=== PATIENT | female | born 1955 | race Hispanic/Latino ===

== ENCOUNTER → 2017-11-14 | Outpatient (CLI) | payer MEDICARE, BC ==
--- NOTE | 2017-11-15 19:09 | Diagnostic Imaging Report ---
Bone Scan, three-phase Reason for exam: Left knee arthroplasty in 2013. Left knee pain that radiates from the knee to the hip, getting progressively worse since 2015.. Radiopharmaceutical: Tc-99m MDP 27.4 mCi Comparison: 3-phase bone scan 07/05/2015 Following intravenous administration of the radiopharmaceutical, dynamic flow and immediate blood pool images of the knees and distal thighs followed by delayed spot images were obtained. Flow and blood pool images show symmetric distribution of tracer activity to the bilateral knees and thighs without focal abnormalities, specifically, none in the left knee. The left knee prosthesis is noted. The distribution of tracer activity at the left knee is unchanged compared to the prior bone scan of 07/05/2015 although is slightly less intense. Tracer is seen along the tibial plateau and at the distal medial femoral condyle. Tracer is unremarkable throughout the thighs and hips without evidence of hyperemia. Trochanteric bursitis is noted on the left. Impression: No scan evidence of loosening of the prosthesis or of infection. No soft tissue inflammatory process is seen in the adjacent soft tissues. No focal abnormalities are seen in the hips or thighs. Signed by: Dr. Rea Evans M.D. on 11/15/2017 7:05 PM
== END ==
LOC: NM 08:19
PROVIDERS: ATTEND Orthopaedic Surgery
DX: M25.552 Pain in left hip (principal)
CPT/HCPCS: 78315; A9503

== ENCOUNTER → 2018-08-21 | Outpatient (CLI) | payer MEDICARE, BC ==
--- NOTE | 2018-08-27 08:41 | Diagnostic Imaging Report ---
PROCEDURE: BONE DXA DUAL ENERGY COMPARISON:04/21/2012 INDICATIONS:POST MENOPAUSAL FINDINGS:Evaluation of the left hip and lumbar spine was performed utilizing DEXA Hologic bone densitometer. The study is technically adequate. The patient does not have any known previous non-traumatic fractures or other risk factors. Left hip total bone mineral density: 0.931 gm/cm2, T-score is -0.2, Z-score is 0.8. Lumbar spine total bone mineral density: 1.082 gm/cm2, T-score is 0.3, Z-score is 2.0. Impression: 1. Normal bone mineral density of the left hip, fracture risk is not increased. 2. Normal bone mineral density of the lumbar spine, fracture risk is not increased. 3. Femur bone mineral density change since previous study (04/21/2012) -3.5% 4. Spine bone mineral density change since previous study (04/21/2012) +4.5% 5. The 10 year fracture risk not reported as all T-scores are above -1.0 The patient's fracture risk is compared to an age-matched control. Medical evaluation for secondary causes of low bone mineral density may be appropriate. Correlate clinically for the necessity and timing of the next bone mineral density study. National [employer] recommendations: Initial therapy to reduce fracture risk in postmenopausal women with -BMD t-scores below -2.0 by central DXA with no risk factors -BMD t-scores below -1.5 by central CXA with one or more risk factors (first deg relative with hip fracture, prior personalfracture, low body weight, smoking) -A prior vertebral or hip fracture AACE n(Clinical Endocrinology) recommends treating the following: Postmenopausal women who have osteoporosis as diagnosed by fragility fractures or t-score -2.5 or below. Postmenopausal women who have risk factors (including hx of hip fracture, low body weight, smoking, risk of falling, high bone turnover, advancing age) and borderline low BMD T-scores of -1.5 or below Adequate intake of calcium (at least 1200mg/day) and vitamin D (400-800IU/day). Regular weight bearing and muscle-strengthening exercises Avoid smoking and excessive alcohol Charbel Bill D.O. Dictated by: Charbel Bill D.O. on 08/27/2018 at 8:50 Electronically approved by: Charbel Bill D.O. on 08/27/2018 at 8:50
--- NOTE | 2018-08-28 08:20 | Diagnostic Imaging Report ---
#[id number] - MGSCRBIL #BILATERAL DIGITAL SCREENING MAMMOGRAM WITH CAD: 08/21/2018 CLINICAL: Routine screening. Comparison is made to exams dated: 08/30/2017 mammogram and 04/21/2012 mammogram - [facility]. Current study contains 4 films. There are scattered fibroglandular elements in both breasts. Current study was also evaluated with a Computer Aided Detection (CAD) system. There are benign calcifications in both breasts. No significant masses, calcifications, or other findings are seen in either breast. There has been no significant interval change. IMPRESSION: BENIGN There is no mammographic evidence of malignancy. A 1 year screening mammogram is recommended. The patient will be notified by letter of the results. Charbel herrera/osmani:08/27/2018 11:55:46 Timber Skidder: Rea LLANES(R)(M), [facility] letter sent: Compared to Prior B9 Mammogram BI-RADS: 2 Benign
== END ==
LOC: MAMMO 08:58
PROVIDERS: ATTEND Family Medicine
DX: Z12.31 Encounter for screening mammogram for malignant neoplasm of breast (principal); Z78.0 Asymptomatic menopausal state
CPT/HCPCS: 77067; 77080

== ENCOUNTER → 2019-06-17 | Outpatient (CLI) | payer MEDICARE ==
--- NOTE | 2019-06-22 09:10 | Diagnostic Imaging Report ---
#[id number] - MGSCRBIL #BILATERAL DIGITAL SCREENING MAMMOGRAM WITH CAD: 06/17/2019 CLINICAL: Routine screening. Comparison is made to exams dated: 08/21/2018 mammogram and 08/30/2017 mammogram - [facility]. Current study contains 4 films. There are scattered fibroglandular elements in both breasts. Current study was also evaluated with a Computer Aided Detection (CAD) system. Benign appearing calcifications are noted bilaterally. No significant masses, calcifications, or other findings are seen in either breast. IMPRESSION: BENIGN There is no mammographic evidence of malignancy. A 1 year screening mammogram is recommended. The patient will be notified by letter of the results. MARILOU SCHNEIDER M.D. ct/penrad:06/19/2019 09:29:26 Youth Worker: Rea LLANES(Will)([place]), [facility] letter sent: Normal Exam Mammogram BI-RADS: 2 Benign
== END ==
LOC: MAMMO 09:04
PROVIDERS: ATTEND Family Medicine
DX: Z12.31 Encounter for screening mammogram for malignant neoplasm of breast (principal)
CPT/HCPCS: 77067

== ENCOUNTER → 2019-09-08 | Outpatient (CLI) | payer MEDICARE ==
--- NOTE | 2019-09-09 02:52 | Diagnostic Imaging Report ---
History: Low back pain, spondylolisthesis Comparison studies: None Technique: Sagittal and axial T2 , sagittal T1 and IR, axial spin density oblique. Intravenous contrast: None Findings: Number of lumbar vertebral bodies: 5. Alignment: Straining the usual lumbar lordotic curvature with mild levo lumbar curvature. Grade 1 (5 mm) degenerative anterolisthesis of L5 on S1. Soft tissues: No T2 hyperintense inflammatory changes. Paraspinal muscles: Moderate symmetric fatty-replaced atrophic changes of the dorsal paraspinal musculature. Lower thoracic cord: Normal in signal and morphology. The tip of the conus is at L1 . Cauda equina: No masses. No arachnoiditis. Vertebrae: No compression fractures, infection or neoplasm. Degenerative changes: A few scattered shallow endplate Schmorl's nodes are present. L1-L2: Mildly degenerated disc. Small central-left central disc extrusion which has migrated toward the midline 5 mm inferior to the level of the superior L2 endplate does not result in canal stenosis or nerve root impingement. Patent foramina. L2-L3: Mildly degenerated the. Disc bulge with annular fissure and superimposed small left central disc extrusion which has migrated 6 mm superiorly from the level of the inferior L2 endplate towards the midline does not result significant canal stenosis or nerve root impingement. Patent foramen. L3-L4: Mildly degenerated disc asymmetric left disc osteophyte complex with superimposed post small left subarticular disc protrusion and facet arthrosis with minimal canal stenosis, narrowing of the bilateral subarticular recesses and mild left foraminal stenosis. Small disc protrusion abut the left L4 nerve root. L4-L5: Moderately degenerated disc asymmetrically on the right along the concavity lumbar curvature where there are degenerative endplate changes and mild edema along the inferior L4 endplate. Asymmetric right disc osteophyte complex, thickened ligamentum flavum and mild facet arthrosis with mild right foraminal stenosis. No significant canal or left foraminal stenosis per L5-S1: Mildly degenerated disc. Grade 1 degenerative anterolisthesis of L5 on S1 with associated uncovered disc/disc bulge and severe bilateral facet arthrosis with mild canal stenosis, moderate right foraminal stenosis and narrowing of the bilateral subarticular recesses. IMPRESSION: 1. Degenerative changes with multilevel disc degeneration, annular fissure at L2-L3, small disc herniations at L2-L3, L3-L4 and at L4-L5, mild multilevel canal stenosis and multilevel facet arthrosis as described. 2. Mild canal stenosis at L3-L4 and at L5-S1. 3. Grade 1 degenerative L5 anterolisthesis with severe facet arthrosis and moderate right foraminal stenosis at L5-S1. Signed by: Dr. Alexis Soto M.D. on 09/09/2019 2:48 AM
== END ==
LOC: MRI 15:22
PROVIDERS: ATTEND Physical Medicine & Rehabilitation
DX: M47.817 Spondylosis without myelopathy or radiculopathy, lumbosacral region (principal)
CPT/HCPCS: 72148

== ENCOUNTER → 2020-10-19 | Outpatient (CLI) | payer MEDICARE | LOC: MAMMO 08:17 | PROVIDERS: ATTEND Family Medicine | DX: Z12.31 Encounter for screening mammogram for malignant neoplasm of breast (principal) | CPT/HCPCS: 77067 ==

== ENCOUNTER → 2025-01-14 | Outpatient (REF) | payer MEDICARE | LOC: MAMMO 09:53 | PROVIDERS: ATTEND Specialist/Technologist, Other Surgical Technologist | DX: Z12.31 Encounter for screening mammogram for malignant neoplasm of breast (principal); Z13.820 Encounter for screening for osteoporosis | CPT/HCPCS: 77067; 77080 ==